=== PATIENT | female | born 1940 | race Caucasian/White ===

== ENCOUNTER 2017-12-08 10:41 | Day surgery (SDC) | payer MEDICARE ==
[2017-12-08 11:30] LABS: Hemoglobin 14.2 g/dL (12.0-16.0)
== END 2017-12-08 13:06 | disposition home or self-care (01) ==
LOC: ONC/OP 10:41
PROVIDERS: ATTEND Internal Medicine Gastroenterology
DX: E83.119 Hemochromatosis, unspecified (principal); Z88.0 Allergy status to penicillin
CPT/HCPCS: 36415; 76705; 82105; 82728; 85014; 85018; 99195

== ENCOUNTER 2018-01-08 10:26 | Day surgery (SDC) | payer MEDICARE | END 2018-01-08 12:25 | disposition home or self-care (01) | LOC: ONC/OP 10:26 | PROVIDERS: ATTEND Internal Medicine Gastroenterology | DX: E83.119 Hemochromatosis, unspecified (principal); Z88.0 Allergy status to penicillin ==

== ENCOUNTER 2018-02-05 10:23 | Day surgery (SDC) | payer OTHER ==
[2018-02-05 11:12] LABS: Hemoglobin 14.1 g/dL (12.0-16.0)
== END 2018-02-05 13:02 | disposition home or self-care (01) ==
LOC: ONC/OP 10:23
PROVIDERS: ATTEND Internal Medicine Gastroenterology
DX: E83.119 Hemochromatosis, unspecified (principal); Z88.0 Allergy status to penicillin
CPT/HCPCS: 82728; 85014; 85018; 99195

== ENCOUNTER 2018-03-12 10:05 | Day surgery (SDC) | payer MEDICARE ==
[2018-03-12 10:26] VITALS: BP 168/78; TEMP 98
[2018-03-12 10:45] LABS: Hemoglobin 13.8 g/dL (12.0-16.0)
== END 2018-03-12 12:40 | disposition home or self-care (01) ==
LOC: ONC/OP 10:05
PROVIDERS: ATTEND Internal Medicine Gastroenterology
DX: E83.119 Hemochromatosis, unspecified (principal); Z88.0 Allergy status to penicillin; Z98.890 Other specified postprocedural states
CPT/HCPCS: 36415; 82728; 85014; 85018; 99195

== ENCOUNTER 2018-04-16 10:10 | Day surgery (SDC) | payer MEDICARE ==
[2018-04-16 10:59] LABS: Hemoglobin 14.1 g/dL (12.0-16.0)
[2018-04-16 11:16] VITALS: BP 143/77; TEMP 98.2
== END 2018-04-16 12:46 | disposition home or self-care (01) ==
LOC: ONC/OP 10:10
PROVIDERS: ATTEND Internal Medicine Gastroenterology
DX: E83.119 Hemochromatosis, unspecified (principal)
CPT/HCPCS: 82728; 85014; 85018; 99195

== ENCOUNTER 2018-05-12 10:26 | Day surgery (SDC) | payer MEDICARE ==
[2018-05-12 11:36] VITALS: BP 166/81; TEMP 98.2
== END 2018-05-12 18:32 | disposition home or self-care (01) ==
LOC: ONC/OP 10:26
PROVIDERS: ATTEND Internal Medicine Gastroenterology
DX: E83.119 Hemochromatosis, unspecified (principal); Z88.0 Allergy status to penicillin
CPT/HCPCS: 82728; 85014; 85018; 99195

== ENCOUNTER 2018-06-04 11:15 | Outpatient (CLI) | payer MEDICARE ==
--- NOTE | 2018-06-04 12:46 | MRI ---
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 COMPARISON: CT abdomen and pelvis from 12/26/2016. TECHNIQUE: Multiplanar, multisequence MR images were obtained of the abdomen with and without IV contrast. FINDINGS: The liver is nodular in appearance, consistent with cirrhosis. No focal liver lesions are seen. No biliary dilatation is present. The gallbladder has been removed. No significant decrease in signal is seen on either the in or out of phase images to suggest iron deposition within any of the solid or talia. There are multiple small, well circumscribed foci of high T2 signal in the pancreas, which are not en hancing. The largest measures 1 cm in size. This likely represents small, simple cysts. No pancrea tic ductal dilatation is seen. The kidneys, adrenal glands, and spleen are unremarkable. There is a well circumscribed fluid collection in the right lower quadrant of the abdomen, just anter ior to the psoas musculature, measuring 8.8 cm in greatest dimension. IMPRESSION: 1. No suspicious liver lesions identified. 2. Multiple small pancreatic cysts. 3. Nonspecific stable fluid collection in the right abdomen. POS: [facility]
== END 2018-06-04 11:16 | disposition home or self-care (01) ==
LOC: MRI 11:15
PROVIDERS: ATTEND Internal Medicine Gastroenterology
DX: K59.01 Slow transit constipation (principal); E83.10 Disorder of iron metabolism, unspecified; E83.119 Hemochromatosis, unspecified; K86.2 Cyst of pancreas; Z86.010 Personal history of colon polyps
CPT/HCPCS: 74183

== ENCOUNTER 2018-06-09 09:47 | Day surgery (SDC) | payer MEDICARE ==
[2018-06-09 10:22] LABS: Hemoglobin 13.1 g/dL (12.0-16.0)
== END 2018-06-09 14:11 | disposition home or self-care (01) ==
LOC: ONC/OP 09:47
PROVIDERS: ATTEND Internal Medicine Gastroenterology
DX: E83.119 Hemochromatosis, unspecified (principal); Z88.0 Allergy status to penicillin
CPT/HCPCS: 82728; 85014; 85018

== ENCOUNTER 2018-07-14 09:52 | Day surgery (SDC) | payer MEDICARE ==
[2018-07-14 11:14] LABS: Hemoglobin 12.8 g/dL (12.0-16.0)
== END 2018-07-14 13:22 | disposition home or self-care (01) ==
LOC: ONC/OP 09:52
PROVIDERS: ATTEND Internal Medicine Gastroenterology
DX: E83.119 Hemochromatosis, unspecified (principal)
CPT/HCPCS: 82728; 85014; 85018

== ENCOUNTER 2018-08-11 10:10 | Day surgery (SDC) | payer MEDICARE ==
[2018-08-11 11:20] LABS: Hemoglobin 13.6 g/dL (12.0-16.0); Platelet Count 149 thou/uL (130-400)
[2018-08-11 13:29] VITALS: BP 135/65; TEMP 98
== END 2018-08-11 12:45 | disposition home or self-care (01) ==
LOC: ONC/OP 10:10
PROVIDERS: ATTEND Internal Medicine Gastroenterology
DX: E83.119 Hemochromatosis, unspecified (principal); Z88.0 Allergy status to penicillin
CPT/HCPCS: 82728; 85014; 85018; 85049; 99211; G0463

== ENCOUNTER 2018-09-22 12:12 | Emergency (ER) | payer MEDICARE ==
--- NOTE | 2018-09-22 14:12 | CT ---
CT OF HEAD NONCONTRAST: Indication: Post-traumatic sahil. FINDINGS: There is no evidence of acute intracranial hemorrhage, mass effect, midline shift, or ventriculomegal y. When referencing the 01-21-17 exam, no significant interval detrimental change. IMPRESSION: No acute intracranial abnormalities. POS: [facility]
[2018-09-22 14:16] LABS: Bilirubin Negative (Negative); Blood, Urine Negative (Negative); Clarity CLOUDY (Clear); Glucose, Urine (Dipstick) Negative (Negative); Leukocyte Trace (Negative); Nitrite Negative (Negative); Protein, Urine (Dipstick) Negative (Neg-Trace); Specific Gravity, Urine 1.012 (1.002-1.036); pH, Urine 7.5 (5.0-9.0)
[2018-09-22 14:18] LABS: Bacteria/HPF None Seen HPF (None Seen); Hyaline Casts/LPF 0-3 HYALINE CAST LPF (0-3 Hyaline); RBC/HPF 0-3 HPF (0-3); Squamous Epithelial 0-3 HPF (0-3); WBC/HPF 0-3 HPF (0-3)
[2018-09-22 14:24] LABS: #Basophils 0.1 thou/uL (0.0-0.2); #Eosinphils 0.1 thou/uL (0.0-0.7); #Lymphocytes 1.8 thou/uL (1.20-3.40); #Monocytes 0.5 thou/uL (0.11-0.59); #Neutrophils 3.4 thou/uL (1.40-6.50); %Basophils 1.1 % (0.0-1.0); %Eosinophils 2.3 % (0.0-10.0); %Lymphocytes 31.2 % (21.0-51.0); %Monocytes 7.7 % (0.0-10.0); %Neutrophils 57.7 % (42.0-75.0); Hemoglobin 13.9 g/dL (12.0-16.0); Mean Corpuscular HGB CONC 33.2 g/dL (32.0-36.0); Mean Corpuscular Hemoglobin 31.5 pg (27.0-31.0); Mean Corpuscular Volume 94.8 fL (78.0-98.0); Mean Platelet Volume 9.2 fL (7.4-10.4); Platelet Count 137 thou/uL (130-400); RBC Distribution Width 13.1 % (11.5-14.5); Red Blood Cell (RBC) Count 4.42 mill/uL (4.20-5.40); White Blood Cell (WBC) Count 5.9 thou/uL (4.8-10.8)
[2018-09-22] MEDS ORDERED: Ondansetron PF 4 MG/2 ML Vial ONE (14:24)
[2018-09-22 14:44] LABS: ALT (SGPT) 21 U/L (8-55); AST (SGOT) 23 U/L (5-34); Albumin 3.9 g/dL (3.4-4.8); Alkaline Phosphatase 63 U/L (40-150); Anion Gap 9 mmol/L (10-20); BUN (Urea Nitrogen) 17 mg/dL (9.8-20.1); Bilirubin, Total 0.4 mg/dL (0.2-1.2); Calc. Creatinine Clearance 0 mL/min (70-130); Calcium 10.5 mg/dL (7.8-10.44); Carbon Dioxide 30 mmol/L (23-31); Chloride 105 mmol/L (98-107); Estimated GFR-MDRD 63; Globulin 3.3 g/dL (2.4-3.5); Glucose 97 mg/dL (83-110); Potassium 3.7 mmol/L (3.5-5.1); Protein, Total 7.2 g/dL (6.0-8.3); Sodium 140 mmol/L (136-145)
[2018-09-22 14:48] LABS: CKMB 3.2 ng/mL (0-6.6); Troponin I Less than 0.010 ng/mL (< 0.028)
--- NOTE | 2018-09-22 15:31 | CT ---
CT CERVICAL SPINE: History: 77-year-old with history of fall. Technique: Axial images were obtained with coronal and sagittal reconstructions. FINDINGS: CT images demonstrate disc space height loss with anterior and posterior osteophytes seen at the C4-5 , C5-6, and C6-7 levels. This is compatible with changes of spondylosis. Bilateral C5-6 and C6-7 neur al foraminal narrowing also seen. No evidence of acute cervical spine abnormalities seen. Some heterogeneity is seen in the right and l eft thyroid lobes. Further workup using elective thyroid sonography may be of use. IMPRESSION: Mid to lower cervical spine changes of spondylosis with no evidence of acute fracture seen. POS: [facility]
--- NOTE | 2018-09-22 15:38 | RAD ---
FRONTAL VIEW CHEST: 09/22/18 INDICATION: Emergency exam. Fall. Pain. FINDINGS: There is no evidence of consolidation, effusion, or pneumothorax. Cardiac silhouette is enlarged and there is mild prominence of pulmonary vasculature. There is a linear hyper density projecting at the left lateral apex not further localized. IMPRESSION: 1. No lobar consolidation. 2. Punctate radiopaque density at the left lateral upper chest overlying the left apex. This is not further localized by portable frontal view. Correlate clinically. POS: [facility]
--- NOTE | 2018-09-26 12:16 | EKG ---
Test Reason : Blood Pressure : / mmHG Vent. Rate : 071 BPM Atrial Rate : 071 BPM P-R Int : 164 ms QRS Dur : 110 ms QT Int : 390 ms P-R-T Axes : -15 009 053 degrees QTc Int : 423 ms Sinus rhythm with occasional Premature ventricular complexes Nonspecific ST and T wave abnormality Abnormal ECG Confirmed by LISBETH KOHLER ([id number]), make up editor VIRGINIA MONTGOMERY ([id number]) on 09/26/2018 12:16:33 PM Referred By: Confirmed By:LISBETH KOHLER
== END 2018-09-22 15:26 | disposition home or self-care (01) ==
LOC: ERS 12:12
DX: M79.10 Myalgia, unspecified site (principal); E03.9 Hypothyroidism, unspecified; K74.60 Unspecified cirrhosis of liver; Z79.899 Other long term (current) drug therapy; Z79.82 Long term (current) use of aspirin; W19.XXXA Unspecified fall, initial encounter
CPT/HCPCS: 36415; 70450; 71045; 72125; 80053; 81003; 81015; 82553; 84484; 85025; 87086; 93005; 96374; 96375; J2270; J2405

== ENCOUNTER 2018-11-11 10:26 | Day surgery (SDC) | payer MEDICARE ==
[2018-11-11 11:07] LABS: Hemoglobin 14.2 g/dL (12.0-16.0)
[2018-11-11 11:50] VITALS: BP 150/72
== END 2018-11-11 13:05 | disposition home or self-care (01) ==
LOC: ONC/OP 10:26
PROVIDERS: ATTEND Internal Medicine Gastroenterology
DX: E83.119 Hemochromatosis, unspecified (principal); Z88.0 Allergy status to penicillin
CPT/HCPCS: 82728; 85014; 85018; 99195

== ENCOUNTER 2018-12-25 09:52 | Outpatient (CLI) | payer MEDICARE ==
--- NOTE | 2018-12-25 12:36 | ULT ---
HEPATIC DOPPLER ULTRASOUND: DATE: 12/25/2018. COMPARISON: None. HISTORY: Cirrhosis, evaluate patency of hepatic and splenic vasculature. TECHNIQUE: Multiplanar, tovar scale sonographic imaging of the abdomen obtained. Hepatic and splenic vasculature assessed with color flow/spectral analysis. FINDINGS: The imaged IVC and aorta are unremarkable and demonstrate appropriate arterial venous waveforms respe ctively. There is mild heterogeneity and peripheral irregularity of the hepatic parenchyma, consiste nt with the provided history of cirrhosis. Partially imaged pancreas grossly unremarkable. Left hepatic pain, left portal vein, middle hepatic vein, left hepatic vein, main portal vein, and ri ght portal vein are patent and demonstrate appropriate directional flow and waveforms. The common bile duct measures 4-5 mm, within normal limits. Hepatic artery is patent and demonstrate s an appropriate arterial waveform. Gallbladder is surgically absent. The coordinator volunteer services reports a neg ative Hale's sign. The spleen measures up to 13 cm, within normal limits. Splenic artery and vein are patent and demons trate appropriate arterial and venous waveforms respectively. IMPRESSION: Hepatic heterogeneity and contour irregularity consistent with the provided history of cirrhosis. Th e hepatic and splenic vasculature is patent and demonstrates appropriate flow direction. POS: [facility]
== END 2018-12-25 09:53 | disposition home or self-care (01) ==
LOC: BICULT 09:52
PROVIDERS: ATTEND Internal Medicine Gastroenterology
DX: E83.110 Hereditary hemochromatosis (principal)
CPT/HCPCS: 76705

== ENCOUNTER 2019-02-23 11:11 | Outpatient (CLI) | payer MEDICARE ==
[2019-02-23] MEDS ORDERED: ISOVUE-370 76%-LOCM 1 ML ONE (13:44)
--- NOTE | 2019-02-23 13:52 | CT ---
FCT neck with and without contrast: (Parathyroid protocol) 02/23/2019 HISTORY: 78-year-old female with hyperparathyroidism, primary TECHNIQUE: Field of coverage: Upper edge of maxillary sinuses to 2.5 cm inferior to the diamond. IV contrast: 120 mm [id number] Precontrast scan, 30 seconds delayed scan, and 60 seconds delayed scan FINDINGS: The left lobe of the thyroid gland is larger than the right, due to one or several nodules at the low er pole of the left lobe. Because there is no clear demarcation between the nodules and the rest of t he thyroid parenchyma, it is difficult to measure. It is approximately 3 x 2.5 x 3 cm. The central po rtion of this lower pole left lobe thyroid nodule is slightly hypointense on the precontrast scan, an d then enhances heterogeneously and intensely during the arterial phase scan. After 60 seconds, the d egree of enhancement is more similar to that of the rest of the thyroid parenchyma. External to the thyroid gland, there are no strongly enhancing nodules that are particularly suspicio us for parathyroid adenoma. There is an approximately 1 x 1.5 cm enhancing nodule in the right anteri or paratracheal location in the upper mediastinum. It is more likely to be of mildly enlarged lymph n ode rather than a parathyroid adenoma. IMPRESSION: 1.) There is no good candidate for parathyroid adenoma. There are couple of poor candidates for which the probability of parathyroid adenoma is low. These include: 2) a 2 x 1.5 cm intrathyroidal nodule in the lower pole of the left lobe of the thyroid gland. This i s probably of thyroid origin, and less likely to represent a parathyroid adenoma. 3) a right anterior paratracheal upper mediastinal nodule. This is probably a mildly enlarged lymph n ode, and less likely to represent a parathyroid adenoma. 4) nuclear medicine parathyroid sestamibi scan with SPECT may be useful.
== END 2019-02-23 11:12 | disposition home or self-care (01) ==
LOC: BICCT 11:11
PROVIDERS: ATTEND Specialist
DX: E21.3 Hyperparathyroidism, unspecified (principal); E04.1 Nontoxic single thyroid nodule; R91.1 Solitary pulmonary nodule
CPT/HCPCS: 70492; 82565; Q9966

== ENCOUNTER 2019-03-23 08:37 | Outpatient (CLI) | payer MEDICARE ==
--- NOTE | 2019-03-24 08:14 | NM ---
Exam: nuclear medicine parathyroid planar and SPECT CT scan HISTORY: hyperparathyroidism. COMPARISON: None TECHNIQUE: Patient was administered 24.7 mCi of technetium 99m sestamibi intravenously. Immediate, 1 hour and [address] with [address] SPECT were obtained. FINDINGS: Expected distribution of the radiotracer. There is still evidence of radiotracer retention in the salivary glands and thyroid gland on the 2 hour images. Radiotracer retention in the thyroid bed limits evaluation for parathyroid adenoma. There does appear to be a radiotracer localization in the left paratracheal region corresponding to lesions noted on recent CT (axial image 40, series 3). This is confirmed on the SPECT images. IMPRESSION: Limited evaluation due to radiotracer retention. Nevertheless, there does appear to be ra diotracer localization in the left paratracheal region, just posterior to the left thyroid lobe likely representing a parathyroid adenoma. This is best demonstrated on the SPECT images correspondin g lesions are noted on the recent CT.
== END 2019-03-23 08:38 | disposition home or self-care (01) ==
LOC: NM 08:37
PROVIDERS: ATTEND Specialist
DX: E21.3 Hyperparathyroidism, unspecified (principal)
CPT/HCPCS: 78072; A9500

== ENCOUNTER 2019-05-20 09:10 | Day surgery (SDC) | payer MEDICARE ==
[2019-05-20 10:29] LABS: Hemoglobin 13.6 g/dL (12.0-16.0)
[2019-05-20] MEDS ORDERED: Fentanyl 100 MCG/2 ML VIAL ONE ×2 (10:36→13:15)
[2019-05-20 10:40] LABS: Anion Gap 11 mmol/L (10-20); BUN (Urea Nitrogen) 22 mg/dL (9.8-20.1); Calc. Creatinine Clearance 0 mL/min (70-130); Calcium 10.9 mg/dL (7.8-10.44); Carbon Dioxide 30 mmol/L (23-31); Chloride 105 mmol/L (98-107); Estimated GFR-MDRD 65; Glucose 103 mg/dL (83-110); Potassium 3.7 mmol/L (3.5-5.1); Sodium 142 mmol/L (136-145)
[2019-05-20] MEDS ORDERED: Lidocaine 1% w/Epinephrine 1:100K 20 ML VIAL ONE (10:48)
[2019-05-20] MEDS ORDERED: PROPOFOL 200 MG/20 ML VIAL ONE (16:20)
[2019-05-20] MEDS ORDERED: PHENYLEPHRINE-NS 100 MCG/ML 10 ML SYRINGE ONE (16:20)
[2019-05-20] MEDS ORDERED: Dexamethasone 20 MG/5 ML VIAL ONE (16:20)
[2019-05-20] MEDS ORDERED: ePHEDrine 50 MG/ML VIAL ONE (16:20)
[2019-05-20] MEDS ORDERED: Rocuronium Bromide 10 MG/ML (10ML VIAL) ONE (16:20)
[2019-05-20] MEDS ORDERED: Ondansetron PF 4 MG/2 ML Vial ONE (16:20)
--- NOTE | 2019-05-21 09:22 | OP ---
DATE OF PROCEDURE: 05/20/2019 PREOPERATIVE DIAGNOSIS: Left parathyroid adenoma. POSTOPERATIVE DIAGNOSIS: Left parathyroid adenoma. PROCEDURE PERFORMED: 1. Exploration of left neck with removal of left parathyroid adenoma. 2. Laryngeal nerve monitoring for over 60 minutes. PROCEDURE IN DETAIL: After consent was obtained, the patient was identified and brought to the operating room and placed in operating table in supine position. General endotracheal anesthesia was obtained with a laryngeal endotracheal tube, and the patient was positioned for surgery. The neck was prepped and draped and extended, and an incision was made through the natural skin crease, carried down through the skin subcutaneous tissues. We then created subplatysmal flaps and elevated them inferiorly and superiorly. We were then able to divide the strap muscles in midline and gain access to the capsule of the thyroid. The thyroid was then dissected on the left side and mobilized medially. This then allowed for access for dissection in the left paratracheal region inferiorly. This area had been previously identified in consultation with the radiologist immediately prior to surgery, where we identified a parathyroid gland and sent it for histologic evaluation, confirmed it was a hypercellular gland, this was removed, and now the attention was turned to obtaining hemostasis and closing the wound. The wound was closed in layers with Monocryl used to reapproximate the strap muscles and platysma and a 5-0 Prolene was used to close the skin. Sterile dressing was applied as were Steri-Strips. The patient was awakened and extubated, and taken to the recovery room in stable condition prior to discharge home. Job ID: [id number]
== END 2019-05-20 15:45 | disposition home or self-care (01) ==
LOC: SDC 09:10
PROVIDERS: ATTEND Specialist
PROC: 0GBR0ZZ Excision of Parathyroid Gland, Open Approach (ICD-10-PCS; principal; 2019-05-20)
DX: D35.1 Benign neoplasm of parathyroid gland (principal); E21.3 Hyperparathyroidism, unspecified; E03.9 Hypothyroidism, unspecified; M19.90 Unspecified osteoarthritis, unspecified site; Z88.0 Allergy status to penicillin; Z79.899 Other long term (current) drug therapy
CPT/HCPCS: 36415; 80048; 85014; 85018; 88305; 88331; 88334; 93005; 93010; J1100; J2001; J2405; J2704; J3010; J3490

== ENCOUNTER 2019-06-16 12:35 | Outpatient (CLI) | payer MEDICARE ==
--- NOTE | 2019-06-16 14:25 | MRI ---
MRI OF THE ABDOMEN WITHOUT AND WITH CONTRAST: 06/16/19 COMPARISON: 06/04/18 HISTORY: Cirrhosis. Six month follow-up. TECHNIQUE: Multiplanar and multisequence MR images were obtained of the abdomen without and with IV contrast. FINDINGS: There is a slight nodular contour of the liver consistent with cirrhosis. No focal liver lesions are seen. No intrahepatic biliary dilatation is seen. The gallbladder is absent. There is stable well circumscribed fluid collection in the right aspect of the abdomen/retroperitoneum measuring 8.7 cm in greatest dimension. This is inferior to the right ki dney. The kidneys, adrenal glands, and spleen are unremarkable. There is stable subcentimeter well ci rcumscribed cysts in the pancreas. These are seen in the head, body, and tail of the pancreas. No kalpana picious enhancement of the pancreas is seen. No abdominal adenopathy is seen. No marrow signal abnormality is present. IMPRESSION: 1. No suspicious liver lesions identified. 2. Nonspecific fluid collection in the right abdomen. 3. Small pancreatic cyst. POS: [facility]
== END 2019-06-16 12:36 | disposition home or self-care (01) ==
LOC: MRI 12:35
PROVIDERS: ATTEND Internal Medicine Gastroenterology
DX: E83.110 Hereditary hemochromatosis (principal); K74.60 Unspecified cirrhosis of liver; K86.2 Cyst of pancreas
CPT/HCPCS: 36415; 74183; 82310; 83970

== ENCOUNTER 2020-01-05 12:49 | Outpatient (CLI) | payer MEDICARE ==
[2020-01-05] MEDS ORDERED: Iopamidol-370 76% 500 ML 1 ML ONE (12:55)
--- NOTE | 2020-01-05 14:40 | CT ---
Exam: Pre and postcontrast soft tissue neck CT HISTORY: Previous removal of a parathyroid adenoma. Elevated calcium levels. COMPARISON: 02/23/2019. CORRELATION: Nuclear medicine parathyroid scan 03/23/2019. FINDINGS: Brain parenchyma: Grossly unremarkable. Sinuses: Adequate aeration of the sinuses and mastoid air cells. Aerodigestive tract: Nasopharynx is unremarkable. No obvious mass in the oral cavity. Limited evaluat ion due to extensive dental amalgam artifact. Midline fatty raphae of the tongue appears to be preserved. Epiglottis is normal caliber. Preepiglottic fat is preserved. Larynx: Supraglottic, glottic and subglottic larynx are unremarkable. There is no prevertebral soft tissue swelling. Salivary glands: Symmetric attenuation of the parotid and submandibular glands. Paraspinal muscles: Symmetric attenuation of paraspinal muscles and sternocleidal mastoid muscles Great vessels of the neck: Patency. No evidence of significant stenosis. Technique limits evaluation. Cervical spine: Vertebral body heights are maintained. No fracture. Varying degrees of central canal stenosis and foraminal narrowing due to degenerative change. Techniq ue limits evaluation. Lungs and mediastinum: Chronic changes. No acute abnormality. Heart size is upper normal. Thyroid gland: Persistent heterogeneity of thyroid gland. There is enhancing nodule in the left thyro id lobe measuring 1.7 x 1.5 cm. There is a rim calcification lesion along the lower aspect of the left thyroid lobe. Parathyroid: There are intrinsically hypodense lesions in the left neck, posterior to the left thyroi d lobe and adjacent to the trachea. These hypodense lesions do demonstrate enhancement on the postcontrast images. There appear to be at least 2 separate lesions that measures 0.5 to 0.6 cm. Feroz elation made with nuclear medicine imaging demonstrates increased uptake. IMPRESSION: 1. Imaging features suggesting at least one if not two adjacent parathyroid adenomas posterior to the left thyroid lobe, left paratracheal in location. These lesions are best demonstrated on axial image 41 and 42, series 7. 2. Heterogeneous appearance of the left thyroid lobe with intrinsic lesion having rim calcification. Thyroid ultrasound is recommended. Transcribed Date/Time: 01/05/2020 3:15 PM
== END 2020-01-05 12:50 | disposition home or self-care (01) ==
LOC: BICCT 12:49
PROVIDERS: ATTEND Specialist
DX: E21.3 Hyperparathyroidism, unspecified (principal)
CPT/HCPCS: 70492; 82565; Q9967

== ENCOUNTER 2020-01-12 09:37 | Outpatient (CLI) | payer MEDICARE ==
--- NOTE | 2020-01-12 10:16 | ULT ---
HEPATIC DOPPLER: HISTORY: Hereditary hemochromatosis. Cirrhosis. COMPARISON: 12/25/2018. TECHNIQUE: Grayscale, color flow, Doppler imaging and spectral wave analysis is performed of the liver: FINDINGS: The head and proximal pancreatic body have a normal echotexture. Visualized liver is aorta has a normal caliber. Visualized IVC has a normal caliber. Hepatic parenchyma has heterogeneous echotexture. Limited evaluation for hepatic masses and intrahepa tic biliary dilatation. There is mild irregularity involving the contour of the hepatic margin. Spleen has a normal echotexture, measuring 12.4 cm. Hepatic Doppler: There is patency and appropriate directional flow of the left portal vein, main port al vein, right portal vein, right hepatic vein, left .hepatic vein, middle hepatic vein, hepatic artery, splenic vein and artery IMPRESSION: 1. Normal hepatic Doppler. 2. Heterogeneous echotexture of liver along with irregularity involving the hepatic margin consistent with history of cirrhosis Transcribed Date/Time: 01/12/2020 10:20 AM
== END 2020-01-12 09:38 | disposition home or self-care (01) ==
LOC: ULT 09:37
PROVIDERS: ATTEND Internal Medicine Gastroenterology
DX: E83.110 Hereditary hemochromatosis (principal); Z86.010 Personal history of colon polyps; K76.89 Other specified diseases of liver
CPT/HCPCS: 76705

== ENCOUNTER 2020-01-20 10:13 | Day surgery (SDC) | payer MEDICARE ==
[2020-01-19 12:50] VITALS: BMI 29.7
[2020-01-20] MEDS ORDERED: Ondansetron PF 4 MG/2 ML Vial ONE (10:45)
[2020-01-20] MEDS ORDERED: Dexamethasone 20 MG/5 ML VIAL ONE (10:45)
[2020-01-20] MEDS ORDERED: Lidocaine 1% PF 5 ML VIAL ONE (10:45)
[2020-01-20] MEDS ORDERED: PHENYLEPHRINE-NS 100 MCG/ML 10 ML SYRINGE ONE (10:45)
[2020-01-20] MEDS ORDERED: PROPOFOL 200 MG/20 ML VIAL ONE (10:45)
[2020-01-20] MEDS ORDERED: EPHEDRINE 25 MG/5 ML SYRINGE ONE (10:45)
[2020-01-20 11:04] LABS: Hemoglobin 14.9 g/dL (12.0-16.0)
[2020-01-20 11:33] LABS: Anion Gap 11 mmol/L (10-20); BUN (Urea Nitrogen) 16 mg/dL (9.8-20.1); Calc. Creatinine Clearance 61 mL/min (70-130); Carbon Dioxide 29 mmol/L (23-31); Chloride 104 mmol/L (98-107); Estimated GFR-MDRD 54; Glucose 96 mg/dL (83-110); Potassium 3.7 mmol/L (3.5-5.1); Sodium 140 mmol/L (136-145)
[2020-01-20] MEDS ORDERED: Lidocaine 1% w/Epinephrine 1:100K 20 ML VIAL ONE (11:52)
[2020-01-20] MEDS ORDERED: Bacitracin Zinc Ointment 30 gm TUBE ONE (11:53)
[2020-01-20] MEDS ORDERED: Fentanyl 100 MCG/2 ML VIAL ONE (11:54)
[2020-01-20] MEDS ORDERED: Midazolam HCl 2 mg/2 ml Vial ONE (11:54)
--- NOTE | 2020-01-20 17:04 | EKG ---
Test Reason : PREOP Blood Pressure : / mmHG Vent. Rate : 061 BPM Atrial Rate : 061 BPM P-R Int : 162 ms QRS Dur : 118 ms QT Int : 420 ms P-R-T Axes : 052 -07 043 degrees QTc Int : 422 ms Normal sinus rhythm Non-specific intra-ventricular conduction delay Moderate voltage criteria for LVH, may be normal variant Abnormal ECG Confirmed by HARITHA CHIRINOS ([id number]) on 01/20/2020 5:04:30 PM Referred By: TWILA Confirmed By:HARITHA CHIRINOS
--- NOTE | 2020-01-24 10:02 | OP ---
DATE OF PROCEDURE: 01/20/2020 PREOPERATIVE DIAGNOSIS: Primary hyperparathyroidism. POSTOPERATIVE DIAGNOSIS: Primary hyperparathyroidism. PROCEDURES PERFORMED: 1. Left neck re-exploration with removal of 2 distinct parathyroid adenomas using laryngeal nerve monitoring. 2. Left thyroid lobectomy. FINDINGS: The patient was found to have 2 discrete left inferior base parathyroid adenomas and postoperative PTH level was less than 50% of the starting level following removal. PROCEDURE IN DETAIL: After consent was obtained, the patient was identified and brought to the operating room and placed on the operating table in supine position. General endotracheal anesthesia was obtained with a laryngeal nerve monitoring and endotracheal tube and the patient was positioned for surgery. The patient was prepped and draped and the natural skin crease was identified from previous surgery, that was infiltrated with 1% lidocaine with 1:100,000 epinephrine. The natural skin crease was then demarcated with a skin marking pen. An incision was made and carried down through the skin and subcutaneous tissues with a 15 blade. The platysma was identified and elevated inferiorly and superiorly, and the strap muscles were divided in midline. There was extensive amount of scar tissue at this point, somewhat complicated the procedure. We then identified the left lobe of the thyroid and was able to elevate the strap muscles from the capsule of the thyroid. Ultimately, we were able to retract the sternocleidomastoid and strap muscles laterally, thus mobilizing the thyroid gland. The thyroid gland was found to be extremely nodular and enlarged at this point and the decision was to do a left thyroid lobectomy as well because of the suspicious nature of the gland. Prior to removing the left thyroid gland, we had identified 2 distinct parathyroid adenomas and the 3rd mass and sent that for histologic evaluation. The frozen section pathology identified the 1st and 3rd specimen as parathyroid gland and the 2nd one as a benign lymph node. At this point, we continued our dissection of the thyroid gland after transecting the inferior and superior vessels and the middle vessel and reflected that in the pretracheal plane. The left superior parathyroid gland was identified at this point, and the decision was made whether or not to proceed with removing the superior parathyroid gland as well. Intraoperative parathyroid hormone level was then obtained to ensure that the thyroid hormone was reduced, and in fact, it was reduced by over 50%. The decision was made to keep the remaining parathyroid gland intact. We then removed the thyroid lobe and obtained hemostasis in the thyroid bed. No significant bleeding was . We then reapproximated the strap muscle platysma and closed the skin with absorbable suture. A sterile dressing was applied. The patient was awakened and extubated with a strong voice and taken to the recovery room good condition. Job ID: [id number]
== END 2020-01-20 18:00 | disposition home or self-care (01) ==
LOC: SDC 10:13
PROVIDERS: ATTEND Specialist
PROC: 0GTG0ZZ Resection of Left Thyroid Gland Lobe, Open Approach (ICD-10-PCS; principal; 2020-01-20)
PROC: 0GTP0ZZ Resection of Left Inferior Parathyroid Gland, Open Approach (ICD-10-PCS; 2020-01-20)
DX: D35.1 Benign neoplasm of parathyroid gland (principal); C73 Malignant neoplasm of thyroid gland; E06.3 Autoimmune thyroiditis; E21.0 Primary hyperparathyroidism; I10 Essential (primary) hypertension; E78.5 Hyperlipidemia, unspecified; F32.9 Major depressive disorder, single episode, unspecified; M19.90 Unspecified osteoarthritis, unspecified site; Z87.891 Personal history of nicotine dependence; Z79.82 Long term (current) use of aspirin; Z79.899 Other long term (current) drug therapy; Z88.0 Allergy status to penicillin
CPT/HCPCS: 36415; 80048; 83970; 85014; 85018; 88305; 88307; 88331; 88334; 93005; 93010; J1100; J2001; J2250; J2405; J2704; J3010

== ENCOUNTER 2020-02-17 09:48 | Day surgery (SDC) | payer MEDICARE ==
[2020-02-16 13:05] VITALS: BMI 30.2
[2020-02-17] MEDS ORDERED: PROPOFOL 200 MG/20 ML VIAL ONE (10:05)
[2020-02-17] MEDS ORDERED: Dexamethasone 20 MG/5 ML VIAL ONE (10:05)
[2020-02-17] MEDS ORDERED: Ondansetron PF 4 MG/2 ML Vial ONE (10:05)
[2020-02-17] MEDS ORDERED: Succinylcholine Chloride 20 MG/ML 10 ml SYRINGE FS ONE (10:05)
[2020-02-17] MEDS ORDERED: Lidocaine 1% PF 5 ML VIAL ONE (10:05)
[2020-02-17 11:25] LABS: Hemoglobin 13.1 g/dL (12.0-16.0)
[2020-02-17] MEDS ORDERED: Fentanyl 100 MCG/2 ML VIAL ONE ×3 (11:42→13:56)
[2020-02-17] MEDS ORDERED: Midazolam HCl 2 mg/2 ml Vial ONE (11:42)
[2020-02-17] MEDS ORDERED: Lidocaine 1% w/Epinephrine 1:100K 20 ML VIAL ONE (11:43)
[2020-02-17] MEDS ORDERED: Bacitracin Zinc Ointment 30 gm TUBE ONE (11:43)
[2020-02-17 11:45] LABS: Anion Gap 9 mmol/L (10-20); BUN (Urea Nitrogen) 22 mg/dL (9.8-20.1); Calc. Creatinine Clearance 57 mL/min (70-130); Carbon Dioxide 28 mmol/L (23-31); Chloride 106 mmol/L (98-107); Estimated GFR-MDRD 51; Glucose 88 mg/dL (83-110); Potassium 3.9 mmol/L (3.5-5.1); Sodium 139 mmol/L (136-145)
--- NOTE | 2020-02-18 12:36 | OP ---
DATE OF PROCEDURE: 02/17/2020 PREOPERATIVE DIAGNOSIS: Follicular carcinoma of thyroid. POSTOPERATIVE DIAGNOSIS: Follicular carcinoma of thyroid. PROCEDURE PERFORMED: Completion right thyroidectomy with laryngeal nerve monitoring. PROCEDURE IN DETAIL: After consent was obtained, the patient was identified and brought to the operating room and placed on the operating table in supine position. General endotracheal anesthesia was obtained with laryngeal nerve monitoring and endotracheal tube. The patient was prepped and positioned for surgery. An incision was made in the natural skin crease where the previous incision made and opened up. The platysmal flaps were elevated inferiorly and a self-retaining retractor was placed. We then the strap muscles in multiple layers and was able to dissect down to the capsule of the thyroid gland. We then meticulously dissected the thyroid gland from the surrounding tissue. A fair amount of inflammation and scarring was encountered. Ultimately, we were able to remove the majority of the thyroid gland with care not to injure the layer and to preserve the remaining parathyroid tissue and hemostasis was then obtained. The wound was closed with and the strap muscles being reapproximated as was the platysma and then the skin closed in two layers with an absorbable suture for the deep layer and Prolene for the skin. Sterile dressing was applied. The patient was awakened and taken to recovery room in stable condition prior to discharge home. Job ID: [id number]
== END 2020-02-17 16:00 | disposition home or self-care (01) ==
LOC: SDC 09:48
PROVIDERS: ATTEND Specialist
PROC: 0GTK0ZZ Resection of Thyroid Gland, Open Approach (ICD-10-PCS; principal; 2020-02-17)
DX: C73 Malignant neoplasm of thyroid gland (principal); E06.3 Autoimmune thyroiditis; E89.0 Postprocedural hypothyroidism; E89.2 Postprocedural hypoparathyroidism; M19.90 Unspecified osteoarthritis, unspecified site; Z79.82 Long term (current) use of aspirin; Z79.899 Other long term (current) drug therapy; Z88.0 Allergy status to penicillin
CPT/HCPCS: 36415; 80048; 85014; 85018; 88307; J1100; J2001; J2250; J2405; J2704; J3010

== ENCOUNTER 2020-05-31 15:29 | Outpatient (CLI) | payer MEDICARE ==
--- NOTE | 2020-05-31 15:59 | ULT ---
Exam: Thyroid ultrasound HISTORY: Left thyroid cancer. Patient states complete thyroidectomy. COMPARISON: None Correlation: Soft tissue neck CT to 04/19/2020 FINDINGS: Thyroid isthmus left thyroid lobe are not appreciated. Right thyroid lobe appears to be pre sent with a normal echotexture. Right upper lobe measures 1.8 x 2.5 x 4.2 cm. No evidence of lymphadenopathy in the thyroid bed IMPRESSION: 1. Left thyroid lobe and isthmus appear to be surgically absent. 2. Residual right thyroid tissue. Correlate with surgical history.
== END 2020-05-31 15:30 | disposition home or self-care (01) ==
LOC: BICULT 15:29
PROVIDERS: ATTEND Internal Medicine Endocrinology, Diabetes & Metabolism
DX: C73 Malignant neoplasm of thyroid gland (principal); E89.0 Postprocedural hypothyroidism
CPT/HCPCS: 36415; 76536; 80053; 82306; 83970; 84439; 84443; 86800

== ENCOUNTER 2020-09-20 09:03 | Outpatient (CLI) | payer MEDICARE ==
--- NOTE | 2020-09-20 13:26 | MRI ---
EXAM: MRI of the abdomen without and with contrast COMPARISON: 06/16/2019, 06/04/2018 HISTORY: Cirrhosis of the liver TECHNIQUE: Multiplanar multi sequence MR images were taken of the abdomen without and with IV contras t. An MRCP was performed. FINDINGS: Liver: There is a slight stable macronodular appearance of the liver. No focal liver lesions or intra hepatic ductal dilatation. Normal signal without dropout on out of phase images. No abnormal enhancement. Gallbladder: Absent Common bile duct: Normal caliber without filling defects Adrenal glands: Unremarkable. Kidneys: No hydronephrosis or focal renal lesions. No abnormal areas of enhancement. Spleen: Unremarkable. Pancreas: Multiple scattered subcentimeter foci of high T2 signal scattered throughout the pancreas r epresent simple cysts. The largest measures 9 mm in size. No abnormal enhancement. Retroperitoneum: No enlarged lymph nodes Peritoneum: There is a slightly decreased in size well-circumscribed fluid collection in the right ab domen inferior to the right kidney measuring 7.9 cm on today's exam. Bones: No marrow signal abnormality. IMPRESSION: 1. No suspicious liver lesions identified 2. Multiple tiny pancreatic cysts 3. Stable nonspecific fluid collection in the right abdomen.
[2020-09-20] MEDS ORDERED: Magnevist 469MG/ML 20 ML VIAL ONE (13:54)
== END 2020-09-20 09:04 | disposition home or self-care (01) ==
LOC: BICMRI 09:03
PROVIDERS: ATTEND Internal Medicine Gastroenterology
DX: K74.60 Unspecified cirrhosis of liver (principal); K86.2 Cyst of pancreas; Z86.010 Personal history of colon polyps; Z80.0 Family history of malignant neoplasm of digestive organs
CPT/HCPCS: 36415; 74183; 80053; 82105; 82565; 82728; 83540; 83550; 85025; 85610; A9579

== ENCOUNTER 2021-04-25 08:47 | Outpatient (CLI) | payer MEDICARE | END 2021-04-25 08:48 | disposition home or self-care (01) | LOC: BICULT 08:47 | PROVIDERS: ATTEND Internal Medicine Gastroenterology | DX: K74.60 Unspecified cirrhosis of liver (principal); E83.110 Hereditary hemochromatosis; Z90.49 Acquired absence of other specified parts of digestive tract | CPT/HCPCS: 76705 ==

== ENCOUNTER 2021-11-05 11:02 | Day surgery (SDC) | payer MEDICARE ==
[2021-11-05 12:51] VITALS: TEMP 98.2
[2021-11-05 12:54] VITALS: BP 138/79
== END 2021-11-05 12:54 | disposition home or self-care (01) ==
LOC: ONC/OP 11:02
PROVIDERS: ATTEND Internal Medicine Gastroenterology
DX: E83.119 Hemochromatosis, unspecified (principal); Z88.0 Allergy status to penicillin
CPT/HCPCS: 99195; 99211; G0463

== ENCOUNTER 2023-11-14 12:26 | Outpatient (CLI) | payer MEDICARE | END 2023-11-14 12:27 | disposition home or self-care (01) | LOC: BICULT 12:26 | PROVIDERS: ATTEND Internal Medicine Gastroenterology | DX: K74.60 Unspecified cirrhosis of liver (principal); Z80.0 Family history of malignant neoplasm of digestive organs; R16.1 Splenomegaly, not elsewhere classified | CPT/HCPCS: 76705 ==